=== PATIENT | female | born 1985 | race Asian ===

== ENCOUNTER → 2023-06-28 12:28 | Outpatient (REF) | payer OTHER, SELFPAY ==
[2023-06-28 12:35] VITALS: BP 97/59; BP_SYST 78
[2023-06-28 12:42] VITALS: BP 97/59; BP_SYST 78
== END ==
LOC: RADI 12:28
PROVIDERS: ATTENDING PHYSICIAN Surgery; FAMILY PHYSICIAN Physician Assistant Medical
DX: R59.0 Localized enlarged lymph nodes (principal)
CPT/HCPCS: 88172; 88173; 38505; 76942; C1729; C1769

== ENCOUNTER → 2023-07-05 10:04 | Outpatient (REF) | payer OTHER, SELFPAY | LOC: HWRAD 10:04 | PROVIDERS: ATTENDING PHYSICIAN Physician Assistant Medical | DX: R22.42 Localized swelling, mass and lump, left lower limb (principal) | CPT/HCPCS: 76882 ==

== ENCOUNTER 2023-07-18 06:26 | Day surgery (SDC) | payer OTHER, SELFPAY ==
[2023-07-14 11:15] LABS: INR 1.01; PT 13.1 Sec (11.4-14.6)
[2023-07-14 11:17] LABS: APTT 29.1 Sec (23.4-35.0)
[2023-07-14 11:20] LABS: Hematocrit 41.4 % (37.0-47.0); Hemoglobin 14.4 g/dL (12.0-16.0); Mean Corp Hgb Conc. 34.8 g/dL (33.0-37.0); Mean Corpuscular Hgb 29.8 pg (27.0-31.0); Mean Corpuscular Volume 85.5 fL (81.0-99.0); Mean Platelet Volume 10.4 fL (7.4-10.4); Platelet Count 271 10^3/uL (130-400); Red Blood Cell Count 4.84 10^6/uL (4.20-5.40); Red Cell Dist. Width 11.9 % (11.5-14.5); White Blood Cell Count 5.5 10^3/uL (4.8-10.8)
[2023-07-14 11:37] LABS: ALT (SGPT) 20 U/L (0-35); AST (SGOT) 22 U/L (14-36); Alkaline Phosphatase 63 U/L (38-126); Blood Urea Nitrogen 8 mg/dl (7-17); Calcium 10.6 mg/dl (8.4-10.2); Carbon Dioxide 26 mmol/L (22-30); Chloride 103 mmol/L (98-107); Glucose 94 mg/dl (70-99); Potassium 4.9 mmol/L (3.5-5.1); Sodium 139 mmol/L (135-145); Total Bilirubin 1.2 mg/dl (0.2-1.3); Total Protein 8.1 g/dl (6.3-8.2); eGFR > 60.00
[2023-07-14 13:01] VITALS: BMI 24.9
--- NOTE | 2023-07-14 13:12 | PTCARENOTE ---
Patients 07/13 ECG abnormal- reviewed by Dr. Mao- no additional interventions required
[2023-07-18 10:37] VITALS: BMI 23.8
[2023-07-18 10:38] VITALS: BMI 23.8
[2023-07-18 10:49] VITALS: BP 96/71
== END 2023-07-18 11:15 | disposition home or self-care (01) ==
LOC: SDS 06:26
PROVIDERS: ATTENDING PHYSICIAN Surgery; FAMILY PHYSICIAN Physician Assistant Medical
DX: E04.0 Nontoxic diffuse goiter (principal); Z53.8 Procedure and treatment not carried out for other reasons
CPT/HCPCS: 60240; 36415; 80053; 85027; 85610; 85730; 93005

== ENCOUNTER → 2023-08-21 08:41 | Outpatient (REF) | payer OTHER, SELFPAY | LOC: RAD 08:41 | PROVIDERS: ATTENDING PHYSICIAN Surgery; FAMILY PHYSICIAN Physician Assistant Medical | DX: E04.0 Nontoxic diffuse goiter (principal) | CPT/HCPCS: 76536 ==

== ENCOUNTER → 2023-08-24 14:11 | Outpatient (REF) | payer OTHER, SELFPAY | LOC: PAVMRI 14:11 | PROVIDERS: ATTENDING PHYSICIAN Orthopaedic Surgery; FAMILY PHYSICIAN Physician Assistant Medical | DX: M79.605 Pain in left leg (principal); R22.42 Localized swelling, mass and lump, left lower limb | CPT/HCPCS: 73720; 73721; A9575 ==

== ENCOUNTER → 2024-02-23 12:56 | Outpatient (REF) | payer OTHER, SELFPAY | LOC: RAD 12:56 | PROVIDERS: ATTENDING PHYSICIAN Internal Medicine Endocrinology, Diabetes & Metabolism; FAMILY PHYSICIAN Physician Assistant Medical | DX: E04.9 Nontoxic goiter, unspecified (principal) | CPT/HCPCS: 76536 ==

== ENCOUNTER → 2024-05-20 09:12 | Outpatient (REF) | payer OTHER, SELFPAY | LOC: RAD 09:12 | PROVIDERS: FAMILY PHYSICIAN Physician Assistant Medical | DX: R22.42 Localized swelling, mass and lump, left lower limb (principal) | CPT/HCPCS: 76882 ==

== ENCOUNTER → 2025-02-17 08:56 | Outpatient (REF) | payer OTHER, SELFPAY | LOC: RAD 08:56 | PROVIDERS: ATTENDING PHYSICIAN Internal Medicine Endocrinology, Diabetes & Metabolism; FAMILY PHYSICIAN Physician Assistant Medical | DX: E04.9 Nontoxic goiter, unspecified (principal) | CPT/HCPCS: 76536 ==